=== PATIENT | female | born 1985 | race Caucasian/White ===

== ENCOUNTER 2017-10-19 06:08 | Day surgery (SDC) | payer BC ==
[2017-10-18 15:15] LABS: BASOPHILS # (AUTO) 0.1 X10'3 (0-0.2); BASOPHILS % (AUTO) 1.1 % (0-1); EOSINOPHILS # (AUTO) 0.1 X10'3 (0-0.9); EOSINOPHILS % (AUTO) 1.8 % (0-6); LYMPHOCYTES # (AUTO) 2.3 X10'3 (1.1-4.8); LYMPHOCYTES % (AUTO) 30.3 % (21-51); MEAN CORPUSCULAR HEMOGLOBIN 28.4 PG (27.0-31.0); MEAN CORPUSCULAR HGB CONC 33.2 % (33.0-36.5); MEAN CORPUSCULAR VOLUME 85.4 FL (78-98); MONOCYTES # (AUTO) 0.4 X10'3 (0-0.9); MONOCYTES % (AUTO) 4.6 % (2-12); NEUTROPHILS # (AUTO) 4.8 X10'3 (1.8-7.7); NEUTROPHILS % (AUTO) 62.2 % (42-75); PRE OP HEMATOCRIT 37.6 % (35.0-45.0); PRE OP HEMOGLOBIN 12.5 g/dL (12.0-16.0); PRE OP PLATELET COUNT 227 X10'3 (140-440); RED BLOOD COUNT 4.41 X10'6 (4.20-5.60); RED CELL DISTRIBUTION WIDTH 13.8 % (11.5-14.5)
[2017-10-18 15:16] LABS: CLARITY,URINE SLIGHTLY CLOUDY (Clear); COLOR,URINE YELLOW (Yellow); GLUCOSE, URINE NEGATIVE (Neg); KETONES,URINE NEGATIVE (Neg); LEUKOCYTE ESTERASE ,URINE NEGATIVE (Neg); NITRITES, URINE NEGATIVE (Neg); OCCULT BLOOD,URINE NEGATIVE (Neg); PROTEIN,URINE NEGATIVE (Neg); UROBILINOGEN,URINE 0.2 E.U/dL (0.2-1.0)
[2017-10-18 15:17] LABS: UA COLLECTION TYPE CLN CATCH MIDSTREAM
[2017-10-18 15:21] LABS: BACTERIA,URINE 1+ /HPF (Neg); MUCUS STRANDS FEW /LPF (Neg); RBC,URINE 0-2 /HPF (0-2); SQUAMOUS EPITHELIAL CELL,UR MODERATE /LPF (FEW); WBC,URINE 0-4 /HPF (0-4)
[2017-10-18 15:26] LABS: HCG SERUM QL NEGATIVE
[2017-10-18 15:34] LABS: ALBUMIN 3.6 G/DL (3.4-5.0); ALKALINE PHOSPHATASE 79 IU/L (46-116); BLOOD UREA NITROGEN 13 MG/DL (7-18); CALCIUM 9.1 MG/DL (8.5-10.1); CHLORIDE 104 MMOL/L (99-107); CREATININE 0.81 MG/DL (0.40-0.90); PRE OP ANION GAP 9 (8-16); PRE OP AST 73 U/L (10-37); PRE OP BILIRUB, TOTAL 0.1 MG/DL (0.0-1.0); PRE OP GLUCOSE 117 MG/DL (70-104); PRE OP POTASSIUM 3.6 MMOL/L (3.4-5.1); PRE OP SODIUM 138 MMOL/L (135-145); TOTAL CARBON DIOXIDE 25.3 MMOL/L (24-32); TOTAL PROTEIN 7.1 G/DL (6.4-8.2); eGFR 82 ML/MIN
[2017-10-18 15:36] LABS: PRE OP ALT 102 U/L (30-65)
[~2017-10-19] VITALS: Ht 160 cm; Wt 92.5 kg
[2017-10-19] VITALS (9 sets, daily range): BP systolic 108–119; BP diastolic 60–77
[~2017-10-19 06:08] MED LIST: TAMO20TA4 PO; ceFOXitin 2 GM ADDvantage bag 100 ML IV ONE; famotidine 20mg tablet PO ONE; ringers solution, lacted 1,000 ML IV SCH; scopolamine 1.5mg patch.TD72 TD ONE
[2017-10-19] MEDS ORDERED: epiNEPHrine 1 mg/ml inj ONE (06:45)
[2017-10-19] MEDS ORDERED: LIDOcaine 1% (10mg/ml) 2ml vial ONE (06:45)
[2017-10-19] MEDS ORDERED: BUPIVAcaine/PF 2.5mg/ml (0.25%) 10ml vial ONE (06:46)
[2017-10-19] MEDS ORDERED: fentaNYL/PF 50MCG/1 ML 2ML syringe ONE ×2 (07:44→08:15)
[2017-10-19] MEDS ORDERED: midazolam 2 mg/2 ml injection ONE (07:44)
[2017-10-19] MEDS ORDERED: rocuronium 10mg/ml inj IV ONE (07:45)
[2017-10-19] MEDS ORDERED: propofol inj 20 ML IV ONE (07:45)
[2017-10-19] MEDS ORDERED: dexamethasone sod phosphate 4mg/ml inj. ONE (07:46)
[2017-10-19] MEDS ORDERED: LIDOcaine 2% (20mg/ml) 5ml vial ONE (07:46)
[2017-10-19] MEDS ORDERED: ondansetron/PF 4mg/2ml inj ONE (07:52)
[2017-10-19] MEDS ORDERED: glycopyrrolate 0.2mg/ml inj ONE (07:52)
[2017-10-19] MEDS ORDERED: sevoflurane 250ml liquid IH ONE (07:52)
[2017-10-19] MEDS ORDERED: proCHLORperazine 10 MG/2 ml inj IV PRN (08:40)
[2017-10-19] MEDS ORDERED: morphine 4 MG/ML inj SYRINge IV PRN ×2 (08:40)
[2017-10-19] MEDS ORDERED: meperidine/PF 25mg/ml syringe IV PRN ×3 (08:40)
[2017-10-19] MEDS ORDERED: ringers solution, lacted 1,000 ML IV SCH (08:40)
[2017-10-19] MEDS ORDERED: ondansetron/PF 4mg/2ml inj IV PRN (08:40)
[2017-10-19] MEDS ORDERED: HYDROcodone/acetaminophen 10/325mg tab PO ONE (10:50)
== END 2017-10-19 11:06 | disposition home or self-care (01) ==
LOC: PAS 06:08
PROVIDERS: ATTEND Obstetrics & Gynecology Obstetrics
DX: N83.11 Corpus luteum cyst of right ovary (principal); E66.9 Obesity, unspecified; Z68.36 Body mass index [BMI] 36.0-36.9, adult; Z85.3 Personal history of malignant neoplasm of breast; Z90.13 Acquired absence of bilateral breasts and nipples; Z79.1 Long term (current) use of non-steroidal anti-inflammatories (NSAID); Z79.891 Long term (current) use of opiate analgesic; Z79.899 Other long term (current) drug therapy; Z98.890 Other specified postprocedural states
CPT/HCPCS: 36415; 58661; 80053; 81001; 84703; 85025; 86885; 86900; 86901; J0171; J0694; J1100; J2001; J2250; J2405; J2704; J3010; J3490; J7120; A7000